=== PATIENT | female | born 1980 | race Hispanic/Latino ===

== ENCOUNTER 2017-04-19 05:47 | Day surgery (SDC) | payer OTHER ==
--- NOTE | 2017-04-16 11:23 | Anesthesia Consultation ---
Anesthesia Consult and Med Hx Date of service: 04/16/17 - Airway Anesthetic Teeth Evaluation: Good ROM Head & Neck: Adequate Mental/Hyoid Distance: Adequate Mallampati Class: Class II Intubation Access Assessment: Probably Good - Pre-Operative Health Status ASA Pre-Surgery Classification: ASA2 Proposed Anesthetic Plan: General - Pulmonary Hx Smoking: No Hx Asthma: Yes (flares up when sick (starts coughing)) - Cardiovascular System Hx Hypertension: No Hx Heart Attack/AMI: No - Central Nervous System Hx Seizures: No CVA: No Hx Psychiatric Problems: No - Gastrointestinal Hx Gastroesophageal Reflux Disease: Yes (on prilosec, hx of endoscopic dilation of stomach to Small intestine) - Endocrine Hx Renal Disease: No Hx Liver Disease: No Hx Non-Insulin Dependent Diabetes: No - Other Systems Hx Alcohol Use: Yes (occas) Hx Cancer: No - Additional Comments Anesthesia Medical History Comments: N/V
[2017-04-16 12:03] LABS: Basophils % (Auto) 0.6 % (0.0-1.8); Eosinophils % (Auto) 1.2 % (0.0-4.3); Hematocrit 36.5 % (30.3-42.9); Hemoglobin 12.1 gm/dl (10.1-14.3); Mean Corpuscular HGB Conc 33 % (30-34); Mean Corpuscular Hemoglobin 31 pg (28-32); Mean Corpuscular Volume 95 fl (79-97); Platelet Count 315 K/mm3 (140-440); Red Blood Count 3.86 M/mm3 (3.65-5.03); Red Cell Distribution Width 12.8 % (13.2-15.2)
--- NOTE | 2017-04-17 16:19 | History and Physical Report ---
History of Present Illness Date of examination: 04/16/17 History of present illness: Patient has been reassessed/reevaluated/re-examined. H&P has been reviewed. No interval changes. This is a 37 years old female who presents with menstrual disorder. The patient complains of menses, heavy bleeding, dysmenhorrhea and cramping, but denies spotting, lack of menses, she may be , history of thyroid disease , history of fibroids, history of bleeding disorders, lightheadness, orthostatic symptoms and fatigue. Menstrual periods have been regular. Number of pads used per day is > 10. Vital Signs: Patient Profile: 37 Years Old Female LMP: 03/22/2017 Height: 65 inches (165.10 cm) Weight: 160 pounds BMI: 26.62 Menstrual History: LMP (date): 03/22/2017 Current Method of Contraception: None Past History : 0 Term Births: 0 Premature Births: 0 Living Children: 0 Para: 0 Mult. Births: 0 Prev : 0 Aborta: 0 Elect. Ab: 0 Spont. 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 of genital herpes: no Partner hx. of genital herpes: no Hx of STD: None Current Allergies (reviewed today): PCN (Critical) Past Medical History: Asthma Past Surgical History: Tonsillectomy (1995) Lsc endometrioais 1999 & 2000 Breast Biopsy: (2001) right Hip surgery (2009 &2010) right Hysteroscopic Myomectomy (08/17/2016) Family History Summary: General Comments - FH: Family History of Asthma Family History of Coronary Heart Disease Family History of Diabetes Family History of CVA or Stroke Family History of Hypertension Family History of Renal Disease No Family History of Breast Cancer No Family History of Cervical Cancer No Family History of Colon Cancer No Family History of Ovarvian Cancer No Family History of DVT/PE on OCP 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 Denies fever, chills, sweats, anorexia, weakness, malaise, weight loss and sleep disorder. Complains of menorrhagia and abnormal vaginal bleeding. Denies vaginal discharge, incontinence, dysuria, hematuria, urinary frequency, amenorrhea, pelvic pain, genital sores, decreased libido, painful periods, painful sex, urinary urgency, hot flashes, vaginal dryness, vaginal itching and vaginal odor. CV Denies chest pains, palpitations, syncope, dyspnea on exertion, orthopnea, PND and peripheral edema. Resp Denies cough, dyspnea at rest, excessive sputum, hemoptysis, wheezing and pleurisy. GI Denies nausea, vomiting, diarrhea, constipation, change in bowel habits, abdominal pain, melena, hematochezia, jaundice, gas/bloating, indigestion/ heartburn, dysphagia and odynophagia. Breast Denies left breast lump, right breast lump, nipple discharge, bloody discharge from nipple, breast pain, abnormal mammogram and breast enlargement. Psych Denies depression, anxiety, irritability and mood swings. [ Past History Past Medical History: other (See HPI) Past Surgical History: Other (See HPI) Social history: other (See HPI) Family history: other (See HPI) Medications and Allergies Allergies Allergy/AdvReac Type Severity Reaction Status Date / Time Penicillins Allergy Unknown Verified 04/12/17 13:39 silk tape AdvReac Rash Uncoded 04/12/17 13:39 Home Medications Medication Instructions Recorded Confirmed Last Taken Type Omeprazole Magnesium [PriLOSEC Otc] 40 mg PO QDAY 04/12/17 04/19/17 04/19/17 04: 30 History Active Meds: Active Medications Famotidine (Pepcid) 20 mg IV PREOP NR Stop: 04/19/17 23:59 Lactated Ringer's (Lactated Ringers) 1,000 mls @ 100 mls/hr IV DIRECT ELBA Midazolam HCl (Versed) 2 mg IV PREOP NR Stop: 04/19/17 06:01 Scopolamine (Transderm-Scop) 1 each TD PREOP NR Stop: 04/19/17 23:59 Exam - Physical Exam Narrative exam: HEENT: normocephalic, no lesions or deformities Skin no significant abnormal lesions or rashes Chest: respiratory effort normal, clear to auscultation Breasts: skin/areolae normal, no masses, no nipple discharge, no erythema/warmth /tenderness, and axillae normal. 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 Questions answered. Discussed with patient various medical, surgical and radiological therapies common for treatment including myomectomy hysterectomy and uterine artery embolization Patient desires definitive treatment Patient desires to retain future fertility. She desires myomectomy Patient desires Myosure Discussed risk of surgery including infection, bleeding and risk of perforating her uterus. Questions answered. Patient understands and desires to proceed (2) Menorrhagia Current Visit: Yes Status: Acute Qualifiers: Menorrahagia type: with regular cycle Qualified Code(s): N92.0 - Excessive and frequent menstruation with regular cycle Plan to address problem: Probably secondary to # 1 (3) Endometriosis Current Visit: Yes Status: Chronic
[~2017-04-19 05:47] MED LIST: PEPCID IV NR
[2017-04-19] MEDS ORDERED: LACTATED RINGERS 1,000 ML IV SCH (06:00)
[2017-04-19] MEDS ORDERED: VERSED IV NR ×2 (06:00→07:00)
[2017-04-19] MEDS ORDERED: TRANSDERM-SCOP TD NR (06:00)
[2017-04-19] MEDS ORDERED: NACL BACTERIOSTATIC INFILTRATI ONE (06:24)
[2017-04-19] MEDS ORDERED: DIPRIVAN 10 MG/ML IV ONE (07:04)
[2017-04-19] MEDS ORDERED: SUBLIMAZE ONE (07:04)
[2017-04-19] MEDS ORDERED: XYLOCAINE MPF 2% ONE (07:04)
[2017-04-19] MEDS ORDERED: DECADRON ONE (07:05)
[2017-04-19] MEDS ORDERED: ZOFRAN ONE (07:05)
[2017-04-19] MEDS ORDERED: ZOFRAN IV PRN (07:12)
[2017-04-19] MEDS ORDERED: DILAUDID IV PRN (07:12)
[2017-04-19] MEDS ORDERED: NORCO 5/325 PO PRN ×2 (07:12→10:00)
--- NOTE | 2017-04-19 07:12 | Anesthesia Day of Surgery ---
Anesthesia Day of Surgery - Day of Surgery Patient Examined: Yes Patient H&P Reviewed: Yes Patient is NPO: Yes
[2017-04-19] MEDS ORDERED: NEO SYNEPHRINE ONE (08:01)
[2017-04-19] MEDS ORDERED: SILVER NITRATE TP ONE ×2 (08:05→08:14)
[2017-04-19] MEDS ORDERED: NACL 0.9% IR ONE (08:14)
--- NOTE | 2017-04-19 08:44 | Operative Report ---
Operative Report Operative Report: Date of procedure: 04/19/2017 Pre-operative diagnosis: Submucosal myoma Post-operative diagnosis: Same endometrial mass seen Procedure name(s): Operative hysteroscopy with MyoSure Surgeon: Yoni Ervin MD Technical Support Agent: [] Anesthesia: Gen. EBL: Minimal Complications: None Findings: Endometrial mass of with appearance of os. Also leiomyoma anteriorly about to have 3 cm in diameter. Both tubal ostia were seen Specimen(s): Uterine mass Procedure: Patient was brought into the operating room, where general anesthesia was induced without any difficulty. Patient was placed in dorsal lithotomy position. Prep and drape in the usual sterile manner. Timeout procedure was performed. The patient's bladder was emptied with a red rubber catheter. Speculum was placed in the vagina. Tenaculum was placed at 12:00 on the cervix. The cervical os was dilated to a 19 [place] diameter. The hysteroscope was placed and the findings noted above. The MyoSure device was primed. The device was placed through the cervical os. The mass was then removed using the MyoSure. The mass was completely removed with no evidence of puncture on the uterine wall. All instruments were then removed. The patient was awakened in the operating room and accompanied to recovery room in good condition.
--- NOTE | 2017-04-19 08:50 | Short Stay Summary ---
Short Stay Documentation Date of service: 04/19/17 - History H&P: dictated Past Medical History: other (See HPI) Past Surgical History: Other (See HPI) Social history: other (See HPI) - Allergies and Medications Current Medications: Allergies Penicillins Allergy (Verified 04/12/17 13:39) Unknown silk tape Adverse Reaction (Uncoded 04/12/17 13:39) Rash Home Medications Medication Instructions Recorded Confirmed Last Taken Type Omeprazole Magnesium [PriLOSEC Otc] 40 mg PO QDAY 04/12/17 04/19/17 04/19/17 04: 30 History Active Medications Famotidine (Pepcid) 20 mg IV PREOP NR Stop: 04/19/17 23:59 Last Admin: 04/19/17 06:47 Dose: 20 mg Hydromorphone HCl (Dilaudid) 0.5 mg IV Q10MIN PRN PRN Reason: Pain , Severe (7-10) Stop: 04/19/17 15:00 Lactated Ringer's (Lactated Ringers) 1,000 mls @ 100 mls/hr IV DIRECT ELBA Last Admin: 04/19/17 06:40 Dose: 100 mls/hr Midazolam HCl (Versed) 2 mg IV PREOP NR Stop: 04/19/17 23:45 Last Admin: 04/19/17 06:47 Dose: 2 mg Scopolamine (Transderm-Scop) 1 each TD PREOP NR Stop: 04/19/17 23:59 Last Admin: 04/19/17 06:46 Dose: 1 each - Brief post op/procedure progress note Date of procedure: 04/19/17 (see dictated op note) - Hospital course Hospital course: Patient was admitted underwent the above him procedure without any complications. Patient will be discharged with follow-up in office in 1-2 weeks for postop check. - Disposition Condition at discharge: Good Disposition: DISCHARGED TO HOME OR SELFCARE - Discharge Diagnoses (1) Submucous leiomyoma of uterus Status: Acute (2) Menorrhagia Status: Acute Qualifiers: Menorrahagia type: with regular cycle Qualified Code(s): N92.0 - Excessive and frequent menstruation with regular cycle (3) Endometriosis Status: Chronic Short Stay Discharge Plan Activity: advance as tolerated Diet: regular Additional Instructions: Patient office for fever chills nausea vomiting or pain uncontrolled by pain relief. Follow up with: PRIMARY CARE, [Primary Care Provider] - 7 Days
--- NOTE | 2017-04-19 09:01 | Post Anesthesia Evaluation ---
- Post Anesthesia Evaluation Patient Participated: Yes Airway Patent: Yes Stable Respiratory Function: Yes Temp > 96.8F: Yes Pain Manageable: Yes Adequeate Hydration: Yes Anesthesia Complications: No Block Receding Appropriately: Not Applicable
[2017-04-19 10:16] VITALS: BP 117/71
== END 2017-04-19 10:14 | disposition home or self-care (01) ==
LOC: OR 05:47
PROVIDERS: ATTEND Obstetrics & Gynecology
DX: D25.0 Submucous leiomyoma of uterus (principal); N80.8 Other endometriosis; J45.909 Unspecified asthma, uncomplicated; K21.9 Gastro-esophageal reflux disease without esophagitis; Z88.0 Allergy status to penicillin; Z83.3 Family history of diabetes mellitus; Z80.3 Family history of malignant neoplasm of breast; Z82.3 Family history of stroke; Z82.49 Family history of ischemic heart disease and other diseases of the circulatory system; Z80.49 Family history of malignant neoplasm of other genital organs
CPT/HCPCS: 36415; 58561; 84703; 85025; 88305; A4217; C1782; J1100; J2250; J2370; J2405; J2704; J3010; J7120

== ENCOUNTER 2018-02-07 05:53 | Inpatient (IN) | payer OTHER ==
--- NOTE | 2018-02-03 11:26 | History and Physical Report ---
History of Present Illness Date of examination: 02/03/18 History of present illness: Patient has been reassessed/reevaluated/re-examined. H&P has been reviewed. No interval changes. This is a 37 years old female who presents with a long history of menstrual disorder. The symptoms returned 2months ago. She complains of irregular menses , heavy bleeding, dysmenorrhea, clotting and history of fibroids, but denies mid -cycle spotting, lack of menses, history of ovarian cysts, history of thyroid disease, history of PCOS, history of bleeding disorder, lightheadedness, fatigue and cramping. Interval between menses is 26 days, 27 days, 28 days and 29 days. Menstrual flow lasts 6 days. The patient also presents with uterine fibroids. She complains of menorrhagia and intermenstrual bleeding. Treatment tried to date includes myomectomy. Prior to today's visit the patient has had US of pelvis and sonohysterogram. Patient's symptoms when present disrupts her normal daily activities Patient desires definitive treatment Patient has failed conserative therapies. Vital Signs: Patient Profile: 37 Years Old Female LMP: 01/13/2018 Height: 65 inches (165.10 cm) Weight: 156 pounds (70.91 kg) BMI: 25.96 BSA: 1.78 Menstrual History: LMP (date): 01/13/2018 Current Method of Contraception: None Past History : 0 Term Births: 0 Premature Births: 0 Living Children: 0 Para: 0 Mult. Births: 0 Prev : 0 Aborta: 0 Elect. Ab: 0 Spont. 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 of genital herpes: no Partner hx. of genital herpes: no Hx of STD: None Current Allergies (reviewed today): PCN (Critical) Past Medical History: Asthma Fibroids Past Surgical History: Tonsillectomy (1995) Lsc endometrioais 1999 & 2000 Breast Biopsy: (2001) right Hip surgery (2009 &2011) right Hysteroscopic Myomectomy (08/17/2016) Myosure (04/19/2017) Family History Summary: Family History of Asthma Family History of Coronary Heart Disease Family History of Diabetes Family History of CVA or Stroke Family History of Hypertension Family History of Renal Disease No Family History of Breast Cancer No Family History of Cervical Cancer No Family History of Colon Cancer No Family History of Ovarvian Cancer No Family History of DVT/PE on OCP 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 Denies fever, chills, sweats, anorexia, weakness, malaise, weight loss and sleep disorder. Complains of menorrhagia, abnormal vaginal bleeding and painful periods. Denies vaginal discharge, incontinence, dysuria, hematuria, urinary frequency, amenorrhea, pelvic pain, genital sores, decreased libido, painful sex , urinary urgency, hot flashes, vaginal dryness, vaginal itching and vaginal odor. CV Denies chest pains, palpitations, syncope, dyspnea on exertion, orthopnea, PND and peripheral edema. Resp Denies cough, dyspnea at rest, excessive sputum, hemoptysis, wheezing and pleurisy. GI Denies nausea, vomiting, diarrhea, constipation, change in bowel habits, abdominal pain, melena, hematochezia, jaundice, gas/bloating, indigestion/ heartburn, dysphagia and odynophagia. Breast Denies left breast lump, right breast lump, nipple discharge, bloody discharge from nipple, breast pain, abnormal mammogram and breast enlargement. Psych Denies depression, anxiety, irritability and mood swings. Past History Past Medical History: other (See HPI) Past Surgical History: Other (See HPI) Social history: (See HPI) Family history: other (See HPI) Medications and Allergies Allergies Allergy/AdvReac Type Severity Reaction Status Date / Time Penicillins Allergy Unknown Verified 01/31/18 13:08 silk tape AdvReac Rash Uncoded 01/31/18 13:08 Home Medications Medication Instructions Recorded Confirmed Last Taken Type Omeprazole Magnesium [PriLOSEC Otc] 40 mg PO QDAY 04/12/17 02/07/18 02/07/18 04: 30 History Review of Systems Constitutional: other (See HPI) Exam - Physical Exam Narrative exam: HEENT: normocephalic, no lesions or deformities Skin no significant abnormal lesions or rashes Chest: respiratory effort normal, clear to auscultation Breasts: skin/areolae normal, no masses, no nipple discharge, no erythema/warmth /tenderness, and axillae normal. 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 Questions answered. Probably secondary to # 2. . Patient's symptoms when present disrupts her normal daily activities Patient desires definitive treatment Patient desires hysterectomy Discussed risks and benefits of laparotomy, laparoscopy, vaginal and robotic assisted approaches for hysterectomies Patient desires robotic assisted total hysterectomy. Consent reviewed and signed . The risks and alternatives for this surgery were reviewed with the patient. Discuss the risks of the surgery including infection, bleeding possibly heavy enough to require a blood transfusion, possible damage to bowel, bladder or ureter. Patient understand that this surgery with make her sterile.Patient understands if her ovaries are removed she will become menopausal. Also if unable to complete robitcally a laparotomy maybe required. Her questions were answered. Patient advised the small risks of spreading of malignancy if morcellator is used during the surgery patient understands and approve of use if necessary Patient understands and desires to proceed. (2) Submucous leiomyoma of uterus Current Visit: No Status: Acute Plan to address problem: Possible etiology of #1 Diagnosis explained to patient . Questions answered. Discussed with patient various medical, surgical and radiological therapies common for treatment including myomectomy hysterectomy and uterine artery embolization Patient desires robotic assisted total hysterectomy. (3) Endometriosis Current Visit: No Status: Chronic (4) Dysmenorrhea Current Visit: No Status: Acute Plan to address problem: Probably secondary to # 3 & 4 (5) Asthma Current Visit: No Status: Chronic Qualifiers: Asthma severity: mild Asthma complication type: uncomplicated
[2018-02-03 11:33] LABS: Basophils % (Auto) 0.6 % (0.0-1.8); Eosinophils # (Auto) 0.1 K/mm3 (0.0-0.4); Eosinophils % (Auto) 1.6 % (0.0-4.3); Hematocrit 33.7 % (30.3-42.9); Hemoglobin 11.2 gm/dl (10.1-14.3); Lymphocytes # (Auto) 1.6 K/mm3 (1.2-5.4); Lymphocytes % (Auto) 28.7 % (13.4-35.0); Mean Corpuscular HGB Conc 33 % (30-34); Mean Corpuscular Hemoglobin 31 pg (28-32); Mean Corpuscular Volume 94 fl (79-97); Monocytes # (Auto) 0.4 K/mm3 (0.0-0.8); Monocytes % (Auto) 8.1 % (0.0-7.3); Platelet Count 291 K/mm3 (140-440); Red Cell Distribution Width 12.9 % (13.2-15.2)
--- NOTE | 2018-02-03 11:33 | Anesthesia Consultation ---
Anesthesia Consult and Med Hx Date of service: 02/07/18 - Airway Anesthetic Teeth Evaluation: Good ROM Head & Neck: Adequate Mental/Hyoid Distance: Adequate Mallampati Class: Class II Intubation Access Assessment: Good - Pulmonary Exam CTA: Yes - Cardiac Exam Cardiac Exam: RRR - Pre-Operative Health Status ASA Pre-Surgery Classification: ASA2 Proposed Anesthetic Plan: General - Pulmonary Hx Asthma: Yes (flares up when sick (starts coughing)) - Central Nervous System Hx Seizures: No CVA: No Hx Psychiatric Problems: No - Gastrointestinal Hx Gastroesophageal Reflux Disease: Yes (on prilosec, hx of endoscopic dilation of stomach to Small intestine) - Endocrine Hx Liver Disease: No Hx Non-Insulin Dependent Diabetes: No - Other Systems Hx Alcohol Use: Yes (occas) Hx Cancer: No - Additional Comments Anesthesia Medical History Comments: Informed consent obtained
[2018-02-03 11:48] LABS: BUN/Creatinine Ratio 30; Blood Urea Nitrogen 12 mg/dL (7-17); Calcium 9.4 mg/dL (8.4-10.2); Hemolysis Index 3
[2018-02-07] MEDS ORDERED: NACL BACTERIOSTATIC INFILTRATI ONE (06:44)
[2018-02-07] MEDS ORDERED: DIPRIVAN 10 MG/ML IV ONE (07:09)
[2018-02-07] MEDS ORDERED: SUBLIMAZE ONE (07:09)
[2018-02-07] MEDS ORDERED: MARCAINE 0.25% INFILTRATI ONE (07:16)
[2018-02-07] MEDS ORDERED: NEOSPORIN GU IR ONE ×2 (07:16→09:39)
[2018-02-07] MEDS ORDERED: VERSED IV NR ×2 (08:00)
[2018-02-07] MEDS ORDERED: TRANSDERM-SCOP TD NR (08:00)
[2018-02-07] MEDS ORDERED: LACTATED RINGERS 1,000 ML IV SCH ×3 (08:00→11:00)
[2018-02-07] MEDS ORDERED: CLEOCIN 600 MG/50 mL 600 MG/50 ML BAG IV NR (08:00)
[2018-02-07] MEDS ORDERED: VERSED ONE (08:09)
[2018-02-07] MEDS ORDERED: GARAMYCIN 120 MG in NACL 0.9% 100 ML IV NR (08:30)
[2018-02-07] MEDS ORDERED: ePHEDrine SULFATE ONE (09:13)
[2018-02-07] MEDS ORDERED: XYLOCAINE MPF 2% ONE (09:37)
[2018-02-07] MEDS ORDERED: ZOFRAN ONE (09:37)
[2018-02-07] MEDS ORDERED: ROBINUL ONE (09:37)
[2018-02-07] MEDS ORDERED: NEOSTIGMINE ONE (09:37)
[2018-02-07] MEDS ORDERED: DECADRON ONE (09:37)
[2018-02-07] MEDS ORDERED: QUELICIN ONE (09:37)
[2018-02-07] MEDS ORDERED: ZEMURON IV ONE (09:37)
[2018-02-07] MEDS ORDERED: MARCAINE 0.5% INFILTRATI ONE (09:40)
[2018-02-07] MEDS ORDERED: NACL 0.9% IR ONE (09:40)
--- NOTE | 2018-02-07 09:52 | Operative Report ---
Operative Report Operative Report: Date of procedure: 02/07/2018 Pre-operative diagnosis: Menorrhalgia, history of submucosal myoma, dysmenorrhea and endometriosis Post-operative diagnosis: [Same] Procedure name(s):Robotic Assisted Total Hysterectomy with bilateral salpingectomy Surgeon: Yoni Ervin MD Senior Investment Analyst: Neil Darling Anesthesia: General EBL: 50 mL Complications: None Findings: Uterus approximately 8 weeks in size with normal tubes bilaterally normal ovaries bilaterally with a corpus luteum cyst present on the right ovary Specimen(s): Uterus with cervix Procedure: Patient was brought to the operating room where general anesthesia was induced without difficulty. Patient was placed in the dorsal lithotomy position. Prepped and draped in the usual sterile manner for robotic procedure. Caro catheter was placed without difficulty. Speculum was placed in the vagina. A medium V-Care Uterine manipulator was placed without difficulty. Attention was now switched to the patient's abdomen. A vertical supra-umbilicus incision was made with a scalpel. A 10-12 trocar was placed in this incision under direct visualization. Intra-abdominal placement was verified with no evidence of internal organ damage. The patient pelvic findings were noted as above. It was determined that the patient was a candidate for robotic procedure. On both sides the umbilical incision at about 8 cm, incisions were made for robotic trocar. Each robotic trocar was placed under direct visualization with no evidence of internal organ damage. assistant terminal manager port were then placed. One 8-10 trocar was placed 2 fingerbreadths above the right iliac crest. At this time the patient was placed in extreme Trendelenburg. The da Teresita robot was then docked on the patient's left side. The trocars connected to the robot appropriately. At this time I took my place under the robotic operating ko. Starting on the patient's right side the mesosalpinx of the tube were cauterized for mild distal to proximal tube. Bipolar cautery was placed across the proximal portion of the fallopian tube. This area was cauterized and cut the fallopian tube was then removed from the large business assistant port. Utero-ovarian complex was cauterized and cut. This was followed by cauterizing and cutting the right round ligament. The broad ligament was then opened. The bladder flap was formed anteriorly. The posterior broad ligament was then excised. The uterine vessels were skeletonized. The ureter was clearly seen out of the operative field. The bladder was pushed away from the anterior uterus. Attention was then switched to the patient's left side. The same procedure was repeated on the left side with perform the salpingectomy followed by isolating the uterine vessels cauterized and cutting and completing the bladder flap from the left side. At this time the uterus was appearing very cyanotic. After inspecting the bladder flap insured no evidence of bladder injury, the colpotomy was then started. Incision started at 6:00 until the V-Care could be seen. This incision was extended from 6:00 to 9:00. Then from 6:00 to 3:00. Then from 9:00 to 12:00. This incision was extended from 3:00 to 12:00. At this time colpotomy was complete with no evidence of adjacent organ damage. The neurological surgery teacher remove the uterus from through the colpotomy site. The vaginal cuff was irrigated and cauterized and found to be hemostatic. The cuff was closed with roboticly using 0 V- Lock suture. This closure was hemostatic after irrigation and Bovie. All pedicles were inspected and found to be hemostatic. The ureters were identified bilaterally and found to be functioning normal. The patient had clear urine in the Caro catheter with no evidence of mixture with blood. Jack was placed on the cuff and pedicles for postoperative hemostasis . All instruments were then removed. The large trocar sites were closed in layers and 4-0 Vicryl. The smaller incisions were closed subcuticularly with 4- 0 Vicryl. The patient tolerated procedure well. She was awakened in the operating room and accompanied to the recovery room in good condition.
[2018-02-07] MEDS ORDERED: D5LR 1,000 ML IV SCH (10:00)
[2018-02-07] MEDS: DILAUDID IV PRN ×2 (10:14→10:31)
[2018-02-07] MEDS ORDERED: DILAUDID ONE (10:15)
--- NOTE | 2018-02-07 10:15 | Post Anesthesia Evaluation ---
- Post Anesthesia Evaluation Patient Participated: Yes Airway Patent: Yes Stable Respiratory Function: Yes Nausea/Vomiting: No Temp > 96.8F: Yes Pain Manageable: Yes Adequeate Hydration: Yes Anesthesia Complications: No
[2018-02-07] MEDS ORDERED: TORADOL IV PRN (10:30)
[2018-02-07] MEDS ORDERED: TYLENOL PO PRN (11:00)
[2018-02-07] MEDS ORDERED: ZOFRAN PO PRN (11:00)
[2018-02-07] MEDS ORDERED: ZOFRAN IV PRN (11:00)
[2018-02-07] MEDS ORDERED: MILK OF MAGNESIA PO PRN (11:00)
[2018-02-07] MEDS ORDERED: LACTATED RINGERS 1,000 ML ONE (11:05)
[2018-02-07] MEDS: NORCO 5/325 PO PRN ×3 (13:05→22:28)
[2018-02-07] MEDS: TORADOL IV SCH ×2 (16:23→22:29)
[2018-02-07] MEDS: CLEOCIN 600 MG/50 mL 600 MG/50 ML BAG IV SCH (16:24)
--- NOTE | 2018-02-07 16:42 | Event Note ---
Date: 02/07/18 Day of surgery. Discuss operative findings with patient and questions answered. Patient without fever. Will ambulate in halls this evening. Good urine output. We will continue routine postoperative care.
[2018-02-07] MEDS: COLACE PO SCH (22:29)
[2018-02-08] MEDS: CLEOCIN 600 MG/50 mL 600 MG/50 ML BAG IV SCH (00:55)
[2018-02-08] MEDS: NORCO 5/325 PO PRN ×3 (02:42→10:56)
[2018-02-08 06:01] LABS: Hematocrit 30.6 % (30.3-42.9); Hemoglobin 10.1 gm/dl (10.1-14.3)
[2018-02-08] MEDS: TORADOL IV SCH (06:57)
[2018-02-08 07:57] VITALS: BP 95/42
[2018-02-08] MEDS: COLACE PO SCH (10:55)
--- NOTE | 2018-02-08 12:08 | Discharge Summary ---
Providers - Providers Date of Admission: 02/07/18 09:39 Date of discharge: 02/08/18 Attending physician: FERNANDO SCHOFIELD Primary care physician: ROZINA DURHAM Hospitalization Condition: Good Procedures: RATH, (B) salpingectomy Hospital course: uncomplicated, desires d/c home Disposition: TO HOME OR SELFCARE - Discharge Diagnoses (1) History of robot-assisted laparoscopic hysterectomy Status: Acute (2) Asthma Status: Chronic Qualifiers: Asthma severity: mild Asthma complication type: uncomplicated Core Measure Documentation - Palliative Care Palliative Care/ Comfort Measures: Not Applicable - Core Measures Any of the following diagnoses?: none Exam - Constitutional Vitals: Temp Pulse Resp BP Pulse Ox 98.5 F 98 H 22 100/50 93 02/08/18 07:40 02/08/18 07:40 02/08/18 07:40 02/08/18 07:40 02/08/18 07:40 General appearance: Present: no acute distress - Respiratory Respiratory effort: normal Respiratory: negative: CTA - Cardiovascular Rhythm: regular - Extremities Extremities: no ischemia, No edema (nontender) - Abdominal General gastrointestinal: Present: soft, non-distended, normal bowel sounds Female genitourinary: Present: deferred - Integumentary Integumentary: Present: clear, warm, dry (incisions c/d/i) - Psychiatric Psychiatric: appropriate mood/affect Plan Activity: other (No sex [id number], ambulate ~1mile on your property a day, no driving until ok with Dr. Schofield) Weight Bearing Status: Weight Bear as Tolerated Diet: regular (eat small meals frequently, drink 68oz water a day, void frequently) Wound: open to air, keep clean and dry Special Instructions: no heavy lifting (>25#) Follow up with: ROZINA DURHAM MD [Primary Care Provider] - 7 Days FERNANDO SCHOFIELD MD [Staff Physician] - (as scheduled) Prescriptions: Ferrous Sulfate [Feosol 325 MG tab] 325 mg PO BID #60 tablet Ibuprofen [Motrin 800 MG tab] 800 mg PO Q6H PRN #30 tablet PRN Reason: Pain oxyCODONE /ACETAMINOPHEN [Percocet 5/325 mg] 1 - 2 tab PO Q4H PRN #30 tablet PRN Reason: Pain, Moderate
== END 2018-02-08 12:35 | disposition home or self-care (01) | DRG 743 ==
LOC: OR 05:53 → OB 09:39
PROVIDERS: ADMIT Obstetrics & Gynecology; ATTEND Obstetrics & Gynecology
PROC: 0UT94ZZ Resection of Uterus, Percutaneous Endoscopic Approach (ICD-10-PCS; principal; 2018-02-07)
PROC: 0UT74ZZ Resection of Bilateral Fallopian Tubes, Percutaneous Endoscopic Approach (ICD-10-PCS; 2018-02-07)
PROC: 8E0W4CZ Robotic Assisted Procedure of Trunk Region, Percutaneous Endoscopic Approach (ICD-10-PCS; 2018-02-07)
DX: D25.0 Submucous leiomyoma of uterus (principal); Z98.890 Other specified postprocedural states; N80.9 Endometriosis, unspecified; J45.909 Unspecified asthma, uncomplicated; Z82.5 Family history of asthma and other chronic lower respiratory diseases; Z82.49 Family history of ischemic heart disease and other diseases of the circulatory system; Z84.1 Family history of disorders of kidney and ureter; Z82.3 Family history of stroke; Z83.3 Family history of diabetes mellitus; Z88.0 Allergy status to penicillin; Z91.048 Other nonmedicinal substance allergy status
CPT/HCPCS: 36415; 80048; 84703; 85014; 85018; 85025; 86850; 86900; 86901; 88302; 88307; A4217; C1765; J0330; J1100; J1170; J1580; J1885; J2250; J2405; J2704; J2710; J3010; J7120

== ENCOUNTER 2019-05-28 09:06 | Outpatient (CLI) | payer OTHER ==
--- NOTE | 2019-05-28 10:29 | Ultrasound Report ---
BILATERAL DIGITAL DIAGNOSTIC MAMMOGRAM WITH CAD 05/28/2019 RIGHT COMPLETE BREAST ULTRASOUND INDICATION: Right axillary palpable lump. According to the patient it has gotten smaller after she be power a course of antibiotics. TECHNIQUE: Digital bilateral mammographic imaging was performed. This examination was interpreted wi th the benefit of Computer-Aided Detection (CAD) analysis. COMPARISON: None. FINDINGS: Breast Density: The breasts are heterogeneously dense, which may obscure small masses. There is no evidence of dominant mass, suspicious calcifications or architectural distortion in eithe r breast. A palpable marker is identified in the right axilla and there is an adjacent lymph node whi ch is partially included on the image. Ultrasound Findings: Complete sonographic evlauation of all 4 quadrants and retroareolar region was p erformed. Ultrasound demonstrated no mass, cyst or shadowing. Ultrasound of the right axilla demons trated a single lymph node with abnormal morphology and minimal central fat. The lymph node measures 2.3 x 1.3 x 1.8 cm. IMPRESSION: A probably benign enlarged right axillary lymph node which according to the patient has g hope smaller on antibiotic therapy. Negative right breast ultrasound. Recommend a short-term follow- up right axillary ultrasound to reevaluate the lymph node in 3 months. BI-RADS Category 3: Probably Benign. A "normal" or negative report should not discourage follow up or biopsy of a clinically significant f inding. A written summary of these findings will be mailed to the patient. The patient will be entered into a mammography reporting system which will generate a reminder letter for the patient's next appointmen t at the appropriate interval. FURTHER INFORMATION: According to the [employer], yearly mammograms are recommend ed starting at age 40 and continuing as long as a woman is in good health. Breast MRI is recommended for women with an approximately 20-25% or greater lifetime risk of breast cancer, including women wi th a strong family history of breast or ovarian cancer and women who have been treated for Hodgkin's disease. Signer Name: Azael Martinez MD Signed: 05/28/2019 10:24 AM Workstation Name: [id number]
== END 2019-05-28 09:07 | disposition home or self-care (01) ==
LOC: MAMMO 09:06
PROVIDERS: ATTEND Family Medicine
DX: N64.52 Nipple discharge (principal); R22.30 Localized swelling, mass and lump, unspecified upper limb; J45.909 Unspecified asthma, uncomplicated; K21.9 Gastro-esophageal reflux disease without esophagitis; Z90.710 Acquired absence of both cervix and uterus
CPT/HCPCS: 77066